=== PATIENT | female | born 1950 | race Caucasian/White ===

== ENCOUNTER → 2019-02-24 | Outpatient (CLI) | payer MEDICARE, OTHER ==
--- NOTE | 2019-02-26 17:30 | MAM ---
EXAM DESCRIPTION: 3D Screening BILATERAL : Digital Mammography. CLINICAL HISTORY: 69 years Female SCREENING . Personal history of right breast cancer with mastectomy. No complaints. Mother with breast cancer at age 68. Remote family history of breast cancer. Menarche age 15. Childbirth. Postmenopausal. No HRT.. Lifetime risk of developing breast cancer (Tyrer-Cuzick model)(%): Due to personal history of breast cancer. COMPARISON: No prior images available.. No prior reports available. TECHNIQUE: Left CC and MLO projection full-field images, digital tomosynthesis mammographic technique. Left digital 2-D full-field MLO images. CAD not available for tomosynthesis or 2-D images. FINDINGS: Left breast parenchymal density pattern is: Scattered areas of fibroglandular density. No skin thickening or nipple retraction. Multiple skin moles. Left axillary lymph nodes. Partially circumscribed mass densities in the anterior and lateral left breast. No suspicious microcalcifications left breast. IMPRESSION: BI-RADS CATEGORY: 0 - INCOMPLETE- Need prior mammograms for comparison. FOLLOW-UP: Comparison with prior examination(s) when available. Written communication explaining the results and follow-up will be mailed to the patient and referring care provider. Electronically signed by: Kannan Gusman MD 02/26/2019 5:28 PM CDT
== END ==
LOC: MAMMO 12:30
PROVIDERS: ATTEND Family Medicine
DX: Z12.31 Encounter for screening mammogram for malignant neoplasm of breast (principal); C44.501 Unspecified malignant neoplasm of skin of breast

== ENCOUNTER → 2019-03-13 | Outpatient (CLI) | payer MEDICARE, OTHER ==
--- NOTE | 2019-03-13 20:31 | US ---
EXAM DESCRIPTION: 3D Diagnostic, Left (accession [id number]), Breast,Left (accession [id number]): Ultrasound CLINICAL HISTORY: 69 yearsFemaleABNORMAL MAMMO focal asymmetry anterior and mid left breast. Right breast cancer with mastectomy. COMPARISON: Left breast screening digital breast tomosynthesis 24 February 2019. TECHNIQUE: Left breast LM projection full-field images, digital mammographic tomosynthesis technique. Left breast 2-D digital full-field images. LM projection. CAD not available. . Transcutaneous scanning of the left breast utilizing erickson-scale and Doppler modes. Scanning performed by the broomcorn thresher ; remote monitoring by Dr. Gusman. FINDINGS: The breast parenchymal density pattern is: Scattered areas of fibroglandular density. No skin thickening or nipple retraction left axillary lymph nodes. Focal asymmetry at the 3:00-3:30 position 4 cm from the nipple. Second region of focal asymmetry 2:30-3:00 position middle third 8 cm from the nipple. Not associated with microcalcifications. Ultrasound: Scanning of the lateral middle third of the left breast and the lateral anterior third of the left breast. Mostly fatty elements with minimal fibroglandular tissues. At the 4:00 position 3 cm from the nipple is a small hypoechoic nodule which may represent a small cyst or lymph node. Nonvascular. Approximately 2 mm greatest diameter. Wider than tall orientation with no posterior acoustic features. At the 2:00 4:00 position of the middle third of the breast, mostly fatty tissues. Minimal fibroglandular elements. No dominant solid mass or distinct cyst. No large calcifications in the regions of interest. No parenchymal edema. IMPRESSION: BI-RADS CATEGORY: 3 - PROBABLY BENIGN. Management: Short interval (6-month) diagnostic tomosynthesis of the left breast and directed left breast ultrasound.. The FINDINGS and the FOLLOW-UP plan were reviewed with the patient by the catering chef after the examination. Written communication explaining the IMPRESSION and FOLLOW-UP will be mailed to the patient and referring care provider. Electronically signed by: Kannan Gusman MD 03/13/2019 8:29 PM CDT
== END ==
LOC: US 10:00
PROVIDERS: ATTEND Family Medicine
DX: R92.8 Other abnormal and inconclusive findings on diagnostic imaging of breast (principal)
CPT/HCPCS: 76641; 77065; G0279

== ENCOUNTER → 2019-04-08 | Outpatient (CLI) | payer MEDICARE, OTHER ==
--- NOTE | 2019-04-09 09:53 | US ---
EXAM DESCRIPTION: Biopsy/Needle Guidance: Ultrasound. CLINICAL HISTORY: 69 years Female LEFT BREAST MASS COMPARISON: Diagnostic ultrasound of the left breast on 08/11/2018. TECHNIQUE: The procedure was performed by Dr. Bar. Repeat ultrasound localized the lesion at the 5:00 position of the left breast 3 cm from the nipple.. Sterile preparation. Sterile ultrasound guidance during needle passes. FINDINGS: 5.8 x 3.4 mm mass again localized, near the skin surface. Stable appearance since the prior study. AP images show echogenic needle within the substance of the mass. IMPRESSION: Successful, ultrasound-guided needle core biopsy of left breast mass anterior lower outer quadrant. Adequate core samples were obtained. Pathology examination at remote facility, results pending. Electronically signed by: Kannan Gusman MD 04/09/2019 9:51 AM [facility]
--- NOTE | 2019-04-29 09:23 | OP ---
DATE OF PROCEDURE: 04/08/19 PREOPERATIVE DIAGNOSIS: 1. Left breast mass. POSTOPERATIVE DIAGNOSIS: 1. Left breast mass. PROCEDURE: 1. Left breast core needle biopsy with ultrasound guidance. SURGEON: Terry Bar MD. ANESTHESIA: Local. INDICATION: Mass. PROCEDURE: Ultrasound was used to identify the superficial mass just over 1 cm. Under ultrasound visualization, the automatic core biopsy was used. Local anesthesia was placed. A small hussein was made and all three cores were taken, two of them appeared to be teleservices representative. She tolerated the procedure well. Pressure was held and dressing placed. She was then discharged with pathology pending. #[id number] MTDD
== END | disposition home or self-care (01) ==
LOC: US 08:38
PROVIDERS: ATTEND Surgery
DX: R92.8 Other abnormal and inconclusive findings on diagnostic imaging of breast (principal)

== ENCOUNTER → 2019-04-24 | Day surgery (SDC) | payer MEDICARE, OTHER ==
[~2019-04-24] MED LIST: BUPIVACAINE 0.5% W/EPI 30 ML VIAL INJ ONE; DEXAMETHASONE INJ 10 MG/ML VIAL ONE; KETAMINE HCL 100 MG/ML VIAL ONE; LACTATED RINGERS 1,000 ML ONE; MIDAZOLAM INJ 2 MG/2 ML VIAL ONE; NEOSTIGMINE METHYLSULFATE 1 MG/ML ML IV ONE; PROPOFOL 200 MG/20 ML VIAL IV ONE; SODIUM CHL 0.9% 100ML MINI-BAG 100 ML IVPB ONE; ceFAZolin SODIUM 1 GM VIAL ONE; fentaNYL CITRATE INJ 50 MCG/ML AMP ONE; raNITIdine HCL INJ 25 MG/ML VIAL ONE
--- NOTE | 2019-04-24 10:13 | OP ---
DATE OF PROCEDURE: 04/24/19 PREOPERATIVE DIAGNOSIS: 1. Left breast atypical duct hyperplasia with a history of right breast cancer. POSTOPERATIVE DIAGNOSIS: 1. Left breast atypical duct hyperplasia with a history of right breast cancer. PROCEDURE: 1. Needle localized wide local excision. SURGEON: Terry Bar MD. ANESTHESIA: General and local. FINDINGS: There were two wires. The more shallow wire was the one in the mass. The other had gone through it, so we took the difference of both. It was a superficial lesion and seemed to be removed completely with gross margins. A stitch marked the superior and the wire was the lateral and slightly anterior margin. COMPLICATIONS: None. ESTIMATED BLOOD LOSS: None. CONDITION: Stable. PLAN: Discharge. INDICATION: As stated. PROCEDURE: The wire had been successfully placed. I discussed the placement with the radiologist. General anesthesia was induced. She was prepped and draped in sterile fashion. The wires were going from lateral to medial in the superficial lesion. The two wires were oriented going through the lesion. A curved incision was made. The inferior portion of the areola and subcutaneous tissues were taken down. We then shallowly took from the skin underlying area around the wires and removed the mass completely. There was excellent hemostasis. It was closed in two layers. Dressing was applied. She was awakened and taken to Recovery to be discharged. #[id number] MTDD
--- NOTE | 2019-04-24 15:53 | US ---
EXAM DESCRIPTION: Biopsy/Needle Guidance: Ultrasound. CLINICAL HISTORY: 69 years Female, benign biopsy findings in the left breast mass on prior ultrasound guided core needle biopsy. Patient elected open mass surgical excision. COMPARISON: Diagnostic left breast tomosynthesis and directed left breast ultrasound 13 March 2019. Ultrasound-guided needle core biopsy 08 April 2019. TECHNIQUE: The procedure was explained to the patient with risks and benefits. The patient gave verbal and written consent. Repeat ultrasound localized the lesion at the left breast, 6:00 position, 3 cm from the nipple. Sterile preparation. Sterile ultrasound guidance. 1% Xylocaine 9:1 ratio with sodium bicarbonate for skin and subdermal anesthesia. Skin incision made with # 11 scalpel blade. Lateral to midline approach. Inserted 5 cm Kopans wire needle system to the edge of the lesion, utilizing sterile ultrasound guidance. Wire advanced through the lesion and 4 cm medial. A second identical wire needle system was introduced, and the needle tip was advanced into the lesion. Needle was removed. Excess wire was clipped. The patient tolerated the procedure well with no immediate complications . FINDINGS: Irregular subcutaneous mass with mostly posterior acoustic enhancement and edge shadowing is again noted, prior to the procedure. Wider than tall orientation. After first needle was removed, wire is visualized with duct 4 cm medial to the mass. Additional images show the needle tip on the lateral aspect of the mass, and after needle removed, the wire hook is visible on the anterior aspect of the mass. IMPRESSION: Successful, ultrasound-guided localization of left breast mass by needle wire system prior to open mass surgical excision. Electronically signed by: Kannan Gusman MD 04/24/2019 3:52 PM IN HOME [facility]
[2019-04-28 15:28] VITALS: O2SAT 98
[2019-04-28 15:29] VITALS: BP 130/56; TEMP 97.9
== END ==
LOC: AMB 05:26 → EDSTATUS 09:00
PROVIDERS: ATTEND Surgery
DX: N60.92 Unspecified benign mammary dysplasia of left breast (principal); J45.909 Unspecified asthma, uncomplicated; E11.9 Type 2 diabetes mellitus without complications; I10 Essential (primary) hypertension; F32.9 Major depressive disorder, single episode, unspecified; E78.00 Pure hypercholesterolemia, unspecified; Z85.3 Personal history of malignant neoplasm of breast; Z90.11 Acquired absence of right breast and nipple; Z88.5 Allergy status to narcotic agent; Z90.710 Acquired absence of both cervix and uterus; Z79.84 Long term (current) use of oral hypoglycemic drugs; Z79.899 Other long term (current) drug therapy
CPT/HCPCS: 00400; 19120; 36415; 36416; 80048; 82948; 85014; 85018; 88307; J0690; J1100; J2250; J2710; J2780; J3010; J3490; J7050; J7120

== ENCOUNTER → 2019-12-17 | Outpatient (CLI) | payer MEDICARE, OTHER | LOC: RESP 15:55 | PROVIDERS: ATTEND Family Medicine | DX: R00.0 Tachycardia, unspecified (principal) ==

== ENCOUNTER → 2020-02-19 | Outpatient (CLI) | payer MEDICARE, OTHER ==
--- NOTE | 2020-02-24 13:51 | MAM ---
EXAM DESCRIPTION: 3D Screening BILATERAL : Digital Mammography. CLINICAL HISTORY: 70 years Female SCREENING personal history of right breast cancer. Mother with breast cancer age 64. Remote family history of breast cancer. No current complaints. No ICH 13. Childbirth age 31. No HRT. Postmenopausal.. Lifetime risk of developing breast cancer (Tyrer-Cuzick model)(%): Not Calculated due to personal history of breast cancer. COMPARISON: Left breast screening digital breast tomosynthesis and left diagnostic breast digital tomosynthesis and targeted left breast ultrasound February 2019. TECHNIQUE: Left breast CC and MLO projection full-field images, digital tomosynthesis mammographic technique. Left breast digital 2-D full-field MLO images. and CC images. CAD available for 2-D images. FINDINGS: Left breast parenchymal density pattern is: Scattered areas of fibroglandular density. No skin thickening or nipple retraction. Skin mole markers and axillary nodes. Solitary microcalcifications. No new focal, stellate mass or density, focal asymmetry , and no suspicious microcalcifications left breast. Stable mammograms compared to prior study. IMPRESSION: Benign exam. BIRAD CATEGORY: 2 BENIGN FINDINGS. RECOMMENDATIONS: FOLLOW UP: Routine digital left breast mammographic screening, one year interval from February 2020. Written communication explaining the IMPRESSION and follow-up, will be mailed to the patient and referring health care provider. According to the [employer], yearly mammograms are recommended starting at age 40 and continuing as long as a woman is in good health. Any breast change noted on a breast self-exam should be reported promptly to the patient's healthcare provider. Breast MRI is recommended for women with an approximately 20-25% or greater lifetime risk of breast cancer, including women with a strong family history of breast or ovarian cancer and women who have been treated for Hodgkin's disease. A negative mammographic report should not delay tissue diagnosis in patients with significant clinical history or physical findings. Extremely dense breast tissue limits the sensitivity of digital mammography. Electronically signed by: Kannan Gusman MD 02/24/2020 1:50 PM CDT
== END ==
LOC: MAMMO 08:55
PROVIDERS: ATTEND Internal Medicine Hematology & Oncology
DX: Z12.31 Encounter for screening mammogram for malignant neoplasm of breast (principal)

== ENCOUNTER → 2020-02-20 | Outpatient (CLI) | payer MEDICARE, OTHER | LOC: GMAJ 10:51 | PROVIDERS: ATTEND Family Medicine | DX: C50.811 Malignant neoplasm of overlapping sites of right female breast (principal); Z79.899 Other long term (current) drug therapy; E11.65 Type 2 diabetes mellitus with hyperglycemia; E78.5 Hyperlipidemia, unspecified ==

== ENCOUNTER 2020-03-14 18:35 | Emergency (ER) | payer MEDICARE, OTHER ==
--- NOTE | 2020-03-14 19:31 | ED.PDOC ---
History of Present Illness - General Chief Complaint: Lower Extremity Injury Stated Complaint: R knee pain/swelling Time Seen by Provider: 03/14/20 19:04 Source: patient Exam Limitations: no limitations - History of Present Illness Initial Comments: The patient is a 70-year-old female presented to emergency room secondary to right knee pain after she accidentally fell in the grocery store while avoiding a 3-year-old. She apparently landed directly on the knee. Most of the tenderness is to be tibial tuberosity. No palpable deformity. No laxity in the knee joint. Muscle strength is preserved. She does have diffuse tenderness however including over the proximal fibula. No crepitus. No laceration. Small amount of bruising present. Timing/Duration: 4-6 hours Severity: moderate Improving Factors: immobilization Worsening Factors: movement Associated Symptoms: denies symptoms Allergies/Adverse Reactions: Allergies Morphine Adverse Reaction (Intermediate, Verified 03/14/20 18:48) hypotension reports if this medication is used to watch her blood pressure closely. Codeine Adverse Reaction (Verified 03/14/20 18:48) Nausea Home Medications: Ambulatory Orders Albuterol Sulfate [Proair Hfa] 2 puff INH Q6H PRN 04/21/19 Dulaglutide [Trulicity] 1.5 mg SUBCU WKLY 04/21/19 Fluoxetine HCl 40 mg PO DAILY 04/21/19 Fluticasone/Salmeterol 250/50 [Advair Diskus] 1 puff INH DAILY 04/21/19 Glimepiride 2 mg PO DAILY 04/21/19 Losartan Potassium 100 mg PO DAILY 04/21/19 Metformin HCl [Metformin Hydrochloride E] 500 mg PO BID 04/21/19 Multiple Vitamins W/ Minerals [Multivitamin Adults] 1 tab PO DAILY 04/21/19 Rosuvastatin Calcium 40 mg PO DAILY 04/21/19 Bmqjrvluibuxk-Zjbm-Cadlumfpxv [Fioricet] 1 ea PO Q8H PRN #21 tab 03/14/20 Review of Systems - Review of Systems Constitutional: States: no symptoms reported EENTM: States: no symptoms reported Respiratory: States: no symptoms reported Cardiology: States: no symptoms reported Gastrointestinal/Abdominal: States: no symptoms reported Genitourinary: States: no symptoms reported Musculoskeletal: States: see HPI Skin: States: see HPI Neurological: States: no symptoms reported Endocrine: States: no symptoms reported All other Systems: No Change from Baseline Past Medical History (General) - Patient Medical History Hx Asthma: Yes Hx Congestive Heart Failure: No Hx Hypertension: Yes Hx Diabetes: Yes Hx MRSA: No Surgical History: tonsillectomy, Hysterectomy - Activities of Daily Living Hospice Agency (if applicable):: None - Female History Patient is a Female of Child Bearing Age (10 -59 yrs old): No Family Medical History - Family History Mother Family History: Unknown Physical Exam - Physical Exam General Appearance: Alert, Comfortable, No apparent distress Eye Exam: bilateral normal Ears, Nose, Throat: hearing grossly normal Neck: full range of motion Respiratory: no respiratory distress, no accessory muscle use Cardiovascular/Chest: normal peripheral pulses, no edema Peripheral Pulses: dorsalis pedis,right: 2+, dorsalis pedis,left: 2+ Rectal Exam: deferred Extremity: no pedal edema, no calf tenderness, normal capillary refill, other - See history of present illness. The patient is neurovascularly intact distally. Neurologic: siebel solution architect II-XII nml as tested, alert, normal mood/affect, oriented x 3 Skin Exam: normal color - Mild bruise at the site of impact. Comments: Vital Signs - 24 hr 03/14/20 03/14/20 18:35 18:41 Temperature 97.6 F 97.6 F Pulse Rate [ 92 H 93 H pulse ox] Respiratory 18 18 Rate Blood Pressure 93/68 120/55 [Left Arm] O2 Sat by Pulse 94 L 96 Oximetry Progress - Progress Progress: 03/14/20 19:32 The patient is a 70-year-old female presented emergency room secondary to right knee pain after a fall today. X-rays are reassuring. The patient is going to be placed in a knee immobilizer. She can take 2 Aleve twice daily to help reduce discomfort. Topical heat additionally may help. She needs to do range of motion exercises when she does not have weight on the knee. She should anticipate being sore for the next 3 weeks. Extra precaution to avoid further falls. If she is not starting to improve after 7 to 10 days then a repeat evaluation with her primary care doctor may be warranted. At this point primarily looks like a contusion. ER warnings are given. mike corral [phone] 03/14/20 19:34 pmpaware consulted - Results/Orders Results/Orders: X-ray of the right knee and tib-fib show no evidence of any obvious fracture or dislocation. See report for details. Departure - Departure Clinical Impression: Fall Qualifiers: Encounter type: initial encounter Qualified Code(s): W19.XXXA - Unspecified fall, initial encounter Contusion, knee Qualifiers: Encounter type: initial encounter Laterality: right Qualified Code(s): S80.01XA - Contusion of right knee, initial encounter Disposition: Discharge to Home or Self Care Condition: Fair Departure Forms: ED Discharge - Pt. Copy, Patient Portal Self Enrollment Instructions: DI for Leg Pain, Contusion (DC) Diet: regular diet Activity: increase activity as tolerated Referrals: Terry Bennett MD [Primary Care Provider] - 1-2 Weeks Prescriptions: Vmziygmbbttjk-Nwpu-Kcozencqvx [Fioricet] 1 ea PO Q8H PRN #21 tab PRN Reason: Pain Home Medications: Ambulatory Orders Albuterol Sulfate [Proair Hfa] 2 puff INH Q6H PRN 04/21/19 Dulaglutide [Trulicity] 1.5 mg SUBCU WKLY 04/21/19 Fluoxetine HCl 40 mg PO DAILY 04/21/19 Fluticasone/Salmeterol 250/50 [Advair Diskus] 1 puff INH DAILY 04/21/19 Glimepiride 2 mg PO DAILY 04/21/19 Losartan Potassium 100 mg PO DAILY 04/21/19 Metformin HCl [Metformin Hydrochloride E] 500 mg PO BID 04/21/19 Multiple Vitamins W/ Minerals [Multivitamin Adults] 1 tab PO DAILY 04/21/19 Rosuvastatin Calcium 40 mg PO DAILY 04/21/19 Gmupnpgltnrvc-Vlob-Iggwsmtqng [Fioricet] 1 ea PO Q8H PRN #21 tab 03/14/20 Additional Instructions: The patient is a 70-year-old female presented emergency room secondary to right knee pain after a fall today. X-rays are reassuring. The patient is going to be placed in a knee immobilizer. She can take 2 Aleve twice daily to help reduce discomfort. Topical heat additionally may help. She needs to do range of motion exercises when she does not have weight on the knee. She should anticipate being sore for the next 3 weeks. Extra precaution to avoid further falls. If she is not starting to improve after 7 to 10 days then a repeat evaluation with her primary care doctor may be warranted. At this point primarily looks like a contusion. ER warnings are given. Due to allergies the patient will be written for short prescription of Fioricet for as needed use.
--- NOTE | 2020-03-14 19:35 | RAD ---
EXAM: XR Right Tibia and Fibula, 2 Views CLINICAL HISTORY: The patient is 70 years old and is Female; fell earlier TECHNIQUE: Two views of the right tibia and fibula. COMPARISON: No relevant prior studies available. FINDINGS: Bones/joints: Unremarkable. No acute fracture. No dislocation. Soft tissues: Unremarkable. No radiopaque foreign body. IMPRESSION: No acute fracture visualized. Electronically signed by: Kia Galarza MD 03/14/2020 7:33 PM CDT
--- NOTE | 2020-03-14 20:12 | RAD ---
EXAM: Knee,Right Complete CLINICAL INDICATION: Right knee pain COMPARISON: There is no previous study for comparison. FINDINGS: Three views of the right knee reveal no evidence of fracture. There is no knee joint effusion. No significant degenerative joint disease is identified. The osseous structures are intact and unremarkable. IMPRESSION: Negative right knee radiographs. Electronically signed by: Joe Harkins MD 03/14/2020 8:11 PM CDT
[2020-03-14 20:21] VITALS: O2SAT 93
[2020-03-14 20:23] VITALS: TEMP 97.9
[2020-03-14 20:33] VITALS: BP 129/65
== END 2020-03-14 20:35 | disposition home or self-care (01) ==
LOC: ER 18:35
DX: S80.01XA Contusion of right knee, initial encounter (principal); I10 Essential (primary) hypertension; E11.9 Type 2 diabetes mellitus without complications; Z79.84 Long term (current) use of oral hypoglycemic drugs; Z88.5 Allergy status to narcotic agent; W01.0XXA Fall on same level from slipping, tripping and stumbling without subsequent striking against object, initial encounter; Y92.512 Supermarket, store or market as the place of occurrence of the external cause